=== PATIENT | female | born 1935 | race Caucasian/White ===

== ENCOUNTER → 2018-07-28 | Outpatient (CLI) | payer MEDICARE ==
[~2018-07-28] VITALS: Ht 162.6 cm; Wt 77.1 kg
[~2018-07-28] MED LIST: CATHETER FLUSH 10 ML SYR IV PRN; REGADENOSON 0.4 MG/5 ML SYR (LEXISCAN) IV ONE
[2018-07-28 09:10] VITALS: BP 146/97
[2018-07-28 09:12] VITALS: BP 123/92
--- NOTE | 2018-07-29 08:54 | STRESS TEST ---
DATE OF SERVICE: 07/28/2018 LEXISCAN MYOVIEW STRESS TEST REPORT REFERRING PHYSICIAN: Dr. Cardoso. Baseline heart rate is 60. Baseline blood pressure 142/94. Baseline EKG is sinus rhythm with no ischemic changes. In summary, the patient received 10.78 mCi of technetium-99 Myoview and the resting images were obtained. Then, the patient received 0.4 mg of Lexiscan followed by 29.6 mCi of technetium-99 Myoview. Throughout the test, there were no EKG changes. The resting and stress images were reviewed and compared in the short axis, horizontal long axis and vertical long axis views. Review of the images showed breast attenuation affecting the quality of the images. There is reversible ischemia involving the mid to apical inferior wall and inferoseptum. SSS is 7, SDS 4, TID value 1.07. On the gated images, the left ventricle appeared to be in normal size with normal contractility. Calculated ejection fraction 79%. CONCLUSION: 1. The patient tolerated Lexiscan well. 2. Reversible ischemia involving the mid to apical inferior wall and inferoseptum. 3. Normal left ventricular size with normal contractility. Calculated ejection fraction 79%. Job ID: [id number] DocumentID: [id number] Dictated Date: 07/29/2018 08:40:30 Patient Support Tech Date: 07/29/2018 08:53:00 Dictated By: DAVID MICHAELS MD
== END ==
LOC: CARD 07:07
PROVIDERS: ATTEND Physician Assistant
DX: R07.9 Chest pain, unspecified (principal); I25.10 Atherosclerotic heart disease of native coronary artery without angina pectoris; I10 Essential (primary) hypertension; E78.2 Mixed hyperlipidemia
CPT/HCPCS: 78452; 93017

== ENCOUNTER 2018-08-08 06:42 | Day surgery (SDC) | payer MEDICARE ==
[~2018-08-08] VITALS: Ht 157.5 cm; Wt 77.1 kg
[2018-08-08] VITALS (11 sets, daily range): BP systolic 115–161; BP diastolic 53–96
[~2018-08-08 06:42] MED LIST changes: -CATHETER FLUSH 10 ML SYR IV PRN; +LIDOCAINE 1% INJ 20 ML 20 ML VIAL ONE; +NS IV 1000 ML 1,000 ML ONE; -REGADENOSON 0.4 MG/5 ML SYR (LEXISCAN) IV ONE
[2018-08-08] MEDS ORDERED: HEParin (CATH LAB) 2,000 ML IV ONE (06:43)
--- OUTSIDE RECORDS SUMMARY | 2018-08-08 06:45 | XMS REPORT | Continuity of Care Document ---
Author Organization Unknown Address Unknown Allergies Active Description Code Type Severity Reaction Onset Reported/Identified Relationship to Patient Clinical Status Yes NO KNOWN DRUG ALLERGIES UNKNOWN NO KNOWN DRUG ALLERG Yes NO KNOWN DRUG ALLERGIES UNKNOWN UNKNOWN Medications There is no data. Problems Date Dx Coded Attending Type Code Diagnosis Diagnosed By 05/28/2017 KAR BRAN 272.4 OTHER AND UNSPECIFIED HYPERLIPIDEMIA 05/28/2017 KAR BRAN 401.0 MALIGNANT ESSENTIAL HYPERTENSION 05/28/2017 KAR BRAN W 414.01 CORONARY ATHEROSCLEROSIS OF [place] CORONARY ARTERY 05/28/2017 KAR BRAN E78.5 HYPERLIPIDEMIA, UNSPECIFIED 05/28/2017 KAR BRAN W I10 ESSENTIAL (PRIMARY) HYPERTENSION 05/28/2017 KAR BRAN W I25.10 ATHEROSCLEROTIC HEART DISEASE OF [place] CORONARY ARTERY WITHOUT ANGINA PECTORIS 05/29/2017 KAR BRAN W 401.0 MALIGNANT ESSENTIAL HYPERTENSION 05/29/2017 KAR BRAN W 414.01 CORONARY ATHEROSCLEROSIS OF [place] CORONARY ARTERY 05/29/2017 KAR BRAN W I10 ESSENTIAL (PRIMARY) HYPERTENSION 05/29/2017 KAR BRAN W I25.10 ATHEROSCLEROTIC HEART DISEASE OF [place] CORONARY ARTERY WITHOUT ANGINA PECTORIS 05/29/2017 KAR BRAN 272.4 OTHER AND UNSPECIFIED HYPERLIPIDEMIA 05/29/2017 KAR BRAN 401.0 MALIGNANT ESSENTIAL HYPERTENSION 05/29/2017 KAR BRAN W 414.01 CORONARY ATHEROSCLEROSIS OF [place] CORONARY ARTERY 05/29/2017 KAR BRAN E78.5 HYPERLIPIDEMIA, UNSPECIFIED 05/29/2017 KAR BRAN W I10 ESSENTIAL (PRIMARY) HYPERTENSION 05/29/2017 KAR BRAN W I25.10 ATHEROSCLEROTIC HEART DISEASE OF [place] CORONARY ARTERY WITHOUT ANGINA PECTORIS 07/24/2017 KAR BRAN V76.10 BREAST SCREENING, UNSPECIFIED 07/24/2017 KAR BRAN Z12.39 ENCOUNTER FOR OTHER SCREENING FOR MALIGNANT NEOPLASM OF BREAST 07/24/2017 KAR BRAN W V76.10 BREAST SCREENING, UNSPECIFIED 07/24/2017 KAR BRAN Z12.39 ENCOUNTER FOR OTHER SCREENING FOR MALIGNANT NEOPLASM OF BREAST Procedures There is no data. Results Test Result Range VIT B-12 - 05/23/16 08:50 Vitamin B12 543.00 pg/mL 213.00-816.00 Thyroid Stimulating Hormone - 05/23/16 08:50 TSH 4.54 mIU/mL 0.32-5.00 Free T4 - 05/23/16 08:50 Free T4 0.95 ng/dL 0.81-1.61 Lipid Panel - 11/26/16 07:07 C/HDL 4.4 3.7-6.7 Cholesterol 133 mg/dL 100-240 HDL 30 mg/dL 30-85 LDL-Calculated 78 mg/dL 0-100 Trig 127 mg/dL 35-160 VLDL 25 mg/dL 0-42 Comprehensive Metabolic Panel - 11/26/16 07:07 Albumin 4.0 g/dL 3.6-5.1 ALP 39 U/L 35-130 ALT 26 U/L 6-45 Anion Gap 11 6-14 AST 25 U/L 2-40 BUN 21 mg/dL 5-25 Calcium 10.0 mg/dL 8.3-10.4 Chloride 104 mmol/L 95-114 CO2 28 mEq/L 22-33 Creat 1.09 mg/dL 0.50-1.50 eGFR 48 mL/min/1.73m2 >59 Globulin 3.3 g/dL 2.3-3.5 Glucose 109 mg/dL 70-110 Osmo 290 280-295 Potassium 4.4 mmol/L 3.5-5.3 Sodium 139 mmol/L 134-148 TBil 2.1 mg/dL 0.2-1.2 TP 7.3 g/dL 6.0-8.3 Comprehensive Metabolic Panel - 05/28/17 14:13 Albumin 3.9 g/dL 3.6-5.1 ALP 39 U/L 35-130 ALT 24 U/L 6-45 Anion Gap 16 6-14 AST 23 U/L 2-40 BUN 19 mg/dL 5-25 Calcium 9.7 mg/dL 8.3-10.4 Chloride 104 mmol/L 95-114 CO2 24 mEq/L 22-33 Creat 1.14 mg/dL 0.50-1.50 eGFR 46 mL/min/1.73m2 >59 Globulin 3.2 g/dL 2.3-3.5 Glucose 120 mg/dL 70-110 Osmo 292 280-295 Potassium 4.3 mmol/L 3.5-5.3 Sodium 140 mmol/L 134-148 TBil 1.9 mg/dL 0.2-1.2 TP 7.1 g/dL 6.0-8.3 Lipid Panel - 05/28/17 14:13 C/HDL 3.6 3.7-6.7 Cholesterol 128 mg/dL 100-240 HDL 36 mg/dL 30-85 LDL-Calculated 74 mg/dL 0-100 Trig 89 mg/dL 35-160 VLDL 18 mg/dL 0-42 VIT B-12 - 05/29/18 09:30 Vitamin B12 404.00 pg/mL 213.00-816.00 Encounters ACCT No. Visit Date/Time Discharge Status Pt. Type Provider Facility Loc./Unit Complaint [id number] 02/19/2013 14:43:00 02/19/2013 23:59:59 CLS Outpatient DIANA GARCIA [id number] 07/24/2018 09:03:00 07/24/2018 23:59:00 DIS Outpatient KAR BRAN [id number] 05/29/2018 10:51:00 05/29/2018 23:59:00 DIS Outpatient KAR BRAN [id number] 01/21/2018 12:48:00 01/21/2018 23:59:00 DIS Outpatient DAVID MICHAELS [id number] 07/24/2017 13:14:00 07/24/2017 23:59:00 DIS Outpatient KAR BRAN [id number] 05/28/2017 14:12:00 05/28/2017 23:59:00 DIS Outpatient KAR BRAN [id number] 11/26/2016 07:01:00 11/26/2016 23:59:00 DIS Outpatient [place] Mo [id number] 07/18/2016 08:49:00 07/18/2016 23:59:00 DIS Outpatient KAR BRAN [id number] 05/31/2016 09:40:00 05/31/2016 09:40:00 CAN Outpatient KAR BRAN [id number] 05/23/2016 10:56:00 05/23/2016 23:59:00 DIS Outpatient KAR BRAN
[2018-08-08] MEDS ORDERED: NS IV 1000 ML 1,000 ML IV SCH ×2 (06:47→08:26)
[2018-08-08 07:08] LABS: MEAN PLATELET VOLUME 9.7 FL (7.4-10.4); RED CELL DISTRIBUTION WIDTH 13.2 % (10.0-14.5); WHITE BLOOD COUNT 7.4 10^3/uL (4.3-11.0)
[2018-08-08] MEDS ORDERED: AMLO5TAB9 PO (07:11)
[2018-08-08] MEDS ORDERED: LOVA20TA2 PO (07:11)
[2018-08-08] MEDS ORDERED: ATEN50TA PO (07:11)
[2018-08-08] MEDS ORDERED: ISOS30TA3 PO (07:11)
[2018-08-08] MEDS ORDERED: ASPI-983 PO (07:11)
[2018-08-08] MEDS ORDERED: MIDAZOLAM 5 MG/5 ML (VERSED) VIAL ONE (07:18)
[2018-08-08] MEDS ORDERED: fentaNYL INJECTION 100 MCG/2 ML AMP ONE (07:18)
--- NOTE | 2018-08-08 07:21 | Diagnostic Imaging Report ---
CLINICAL INDICATION: Patient with abnormal stress test, patient with coronary artery disease and hypertension. EXAM: Portable chest x-ray upright view. COMPARISONS: None. FINDINGS: There is an area of soft tissue opacity/prominence involving the right upper mediastinal region. Lungs are clear. There is no pleural effusion or pneumothorax. There is mild cardiomegaly. There is no significant pulmonary vascular congestion. There is levoscoliosis of thoracolumbar spine. There are hypertrophic spurs involving the thoracic and lumbar spine. There is degenerative disease and joint space narrowing of the glenohumeral joint. IMPRESSION: 1: There is mediastinal prominence in the right upper region. This may represent a mass, lymphadenopathy, or thyroid mass. CT scan of the chest with contrast is suggested for further evaluation. 2: There is cardiomegaly with no significant pulmonary vascular congestion. 3: There is no lung infiltrate. Dictated by: Dictated on workstation # [id number]
[2018-08-08 07:29] LABS: PROTHROMBIN TIME PATIENT 13.2 SEC (12.2-14.7)
[2018-08-08 07:35] LABS: ALBUMIN 4.1 GM/DL (3.2-4.5); BILIRUBIN,TOTAL 2.3 MG/DL (0.1-1.0); CALCIUM 9.6 MG/DL (8.5-10.1); CREATININE SERUM 1.15 MG/DL (0.60-1.30); TOTAL PROTEIN 7.1 GM/DL (6.4-8.2)
--- NOTE | 2018-08-08 07:38 | Cardiac Procedure Note-CS/ASA ---
Pre-Procedure Note Pre-Op Procedure Note H&P Reviewed The H&P was reviewed, patient examined and no changes noted. Date H&P Reviewed: Aug 08, 2018 Time H&P Reviewed: 07:37 Conscious Sedation Pre-Proced Time 07:38 ASA Score 3 For ASA 3 and 4: Consider anesthesia and medical clearance. Also, for patients with a history of failed moderate sedation consider anesthesia. Airway Lungs Heart ASA score ASA 1: a normal healthy patient ASA 2: a patient with a mild systemic disease (mid diabetes, controlled hypertension, obesity x ASA 3: a patient with a severe systemic disease that limits activity (angina, COPD, prior Myocardial infarction) ASA 4: a patient with an incapacitating disease that is a constant threat to life (CHF, renal failure) ASA 5: a moribund patient not expected to survive 24 hrs. (ruptured aneurysm) ASA 6: a declared brain- patient whose organs are being harvested. For emergent operations, add the letter E after the classification Mallampati Classification Grade 3 Sedation Plan Analgesia, Amnesia, Plan communicated to team members, Discussed options with patient/fam, Discussed risks with patient/fam The patient is an appropriate candidate to undergo the planned procedure, sedation, and anesthesia. The patient immediately re-assessed prior to indication. DAVID MICHAELS MD Aug 08, 2018 7:38 am
[2018-08-08] MEDS ORDERED: PATIENT MAY USE OWN MEDS, ALL PO SCH (08:30)
--- NOTE | 2018-08-08 08:30 | Discharge Inst-Post CATH ---
Discharge Inst-CATH/EP Post Cardiac Cath/EP D/C Inst Follow Up/Plan Appointment with Dr Smart's office in 4-6 weeks <b>CARDIAC CATH/EP PROCEDURE DISCHARGE INSTRUCTIONS</b> ACTIVITY * Go Home directly and rest. * Limit activity of the leg (or wrist if it was used) for 7 days including aerobics, swimming, jogging, bicycling, etc. * Restrict stair-climbing for 7 days if possible, if not, climb up with your non-cath leg, then bring together on the same step. * Avoid lifting, pushing, pulling or excessive movement of the affected extremity for 7 days. * Customary sexual activity may be resumed after 2 days-use caution not to use a position that strains or causes pain to the affected extremity. * No driving for 24 hours. * NO SMOKING. * Avoid straining for bowel movements for 7 days. * Gentle walking on level ground is allowed. * Returning to work will depend on the type of procedure and the results. Your doctor will discuss this with you. CALL YOUR DOCTOR FOR ANY OF THE FOLLOWING: *If bleeding from the puncture site occurs- Apply gentle pressure to site with clean cloth and call your doctor or EMS. * If a knot or lump forms under the skin, increases in size, or causes pain. * If bruising appears to be worsening or moving further down your leg instead of disappearing. * Temperature above 101 F. CARE OF YOUR GROIN INCISION; * Bruising or purple discoloration of the skin near the puncture site is common. * You may shower only, no bathtub bathing for 5 days. Be careful to avoid slipping as your leg may feel stiff. * If a closure device was used on your femoral artery, please see the attached guide regarding care of the device and your leg. * Leave dressing on FOR 24 hours. CARE OF YOUR WRIST INCISION; * Bruising or purple discoloration of the skin near the puncture site is common. * You may shower. * DO NOT submerge wrist. * Leave dressing on FOR 24 hours. DAVID SMART MD Aug 08, 2018 08:30
--- NOTE | 2018-08-08 08:34 | Cardiac Cath Report ---
Cardiac Cath Report Physician (s)/Black Puller (s) Physician DAVID MICHAELS MD Pre-Procedure Diagnosis Pre-Procedure Diagnosis: CAD Post-Procedure Note Procedure Start Date: Aug 08, 2018 Name of Procedure: Left heart cath Findings/Procedure Note PROCEDURE NOTE: 83 years old lady with history of coronary artery disease, had an abnormal stress test. She was scheduled for cardiac catheterization possible PTCA. After explaining the procedure to the patient, all pros and cons were explained, all questions were answered. The patient signed the consent and then she was placed on the cardiac catheterization laboratory. Groin was prepped SL fashion local anesthesia was used. Sheath placed in the right femoral artery. Isidro right and left catheter were used to access the coronary system. Pigtail was used to access the left ventricular cavity. Left ventriculogram was not done, pressure was measured At the end of the procedure the sheath was removed. 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 Small vessel disease Right Coronory Artery has diffuse ectasia with slow flow, small vessel disease LV Gram was not done, pressure was measured CONCLUSION: 1. Coronary ectasia with slow flow in the LAD, circumflex and right coronary artery, small vessel disease 2. Normal left ventricular end-diastolic pressure DISCUSSION AND RECOMMENDATION: I recommend continuing to maximize medical therapy. No intervention is warranted Anesthesia Type: Conscious Sedation Estimated blood loss (mL): 25 ml Contrast Amount: 34 ml Total Radiation Dose: 480 mGy Post-Procedure Diagnosis Post-operative diagnosis: Coronary artery disease Hypertension Hyperlipidemia Unstable angina DAVID MICHAELS MD Aug 08, 2018 08:34
== END 2018-08-08 13:10 | disposition home or self-care (01) ==
LOC: CATH 06:42 → SDC 08:52 → CATH 13:10
PROVIDERS: ATTEND Internal Medicine Cardiovascular Disease
DX: I25.110 Atherosclerotic heart disease of native coronary artery with unstable angina pectoris (principal); I10 Essential (primary) hypertension; E78.2 Mixed hyperlipidemia; Z82.49 Family history of ischemic heart disease and other diseases of the circulatory system; Z79.82 Long term (current) use of aspirin; Z79.899 Other long term (current) drug therapy
CPT/HCPCS: 36415; 71045; 80053; 80061; 85027; 85610; 85730; 87081; 93458